=== PATIENT | male | born 1990 | race Hispanic/Latino ===

== ENCOUNTER 2018-03-21 23:09 | Emergency (ER) | payer BC ==
[2018-03-21 23:23] VITALS: TEMP 97.5; O2SAT 100
[2018-03-21] MEDS ORDERED: Albuterol 0.083% Inhal Sol (2.5 mg/3 mL) UD INH STA (23:54)
[2018-03-22] MEDS ORDERED: Albuterol 0.083% Inhal Sol (2.5 mg/3 mL) UD ONE ×2 (00:04→00:59)
--- NOTE | 2018-03-22 00:04 | ED PDOC ---
HPI: SOB/CHF/COPD Time Seen by Provider: 03/21/18 23:31 Chief Complaint (Nursing): Shortness Of Breath History Per: Patient History/Exam Limitations: no limitations Current Symptoms Are (Timing): Still Present Quality: Tightness Additional Complaint(s): No PMHx presenting with chest tightness and SOB, states he returned from [facility] on Saturday, started having symptoms of SOB and chest tightness on Saturday , states that it comes and goes and intensity of symptoms vary, states that Saturday while at work he nearly passed out. States that his tightness is mid- sternal. No cough, fevers, chills, leg/calf pain or swelling. Denies nausea, vomiting. Of note, he states he injured in R ankle in [facility] and has not been as active as normal. Past Medical History Reviewed: Historical Data, Nursing Documentation, Vital Signs Vital Signs: Last Vital Signs Temp 97.5 F L 03/21/18 23:20 Pulse 74 03/22/18 03:10 Resp 19 03/22/18 03:10 BP 135/68 03/22/18 03:10 Pulse Ox 100 03/22/18 03:10 - Family History Family History: States: Unknown Family Hx - Home Medications Home Medications: Ambulatory Orders Medication Instructions Recorded Albuterol HFA [Ventolin HFA 90 2 puff IH [id number] #1 puff 03/22/18 mcg/actuation (8 g)] Ibuprofen [Motrin Tab] 600 mg PO Q6 #30 tab 03/22/18 Prednisone [Deltasone] 40 mg PO DAILY 3 Days #6 tablet 03/22/18 - Allergies Allergies/Adverse Reactions: Allergies Allergy/AdvReac Type Severity Reaction Status Date / Time No Known Allergies Allergy Verified 03/21/18 23:20 Review of Systems ROS Statement: Except As Marked, All Systems Reviewed And Found Negative Cardiovascular: Positive for: Chest Pain, Light Headedness Respiratory: Positive for: Shortness of Breath Physical Exam - Reviewed Nursing Documentation Reviewed: Yes Vital Signs Reviewed: Yes - Physical Exam Appears: Positive for: Well, Non-toxic, No Acute Distress Head Exam: Positive for: ATRAUMATIC, NORMAL INSPECTION, NORMOCEPHALIC Skin: Positive for: Normal Color, Warm, DRY Eye Exam: Positive for: EOMI, Normal appearance, PERRL ENT: Positive for: Normal ENT Inspection Neck: Positive for: Normal, Painless ROM Cardiovascular/Chest: Positive for: Regular Rate, Rhythm Respiratory: Positive for: CNT, Normal Breath Sounds Gastrointestinal/Abdominal: Positive for: Normal Exam, Soft. Negative for: Tenderness Back: Positive for: Normal Inspection Extremity: Positive for: Normal ROM. Negative for: Tenderness, Pedal Edema, Calf Tenderness Neurologic/Psych: Positive for: Alert, Oriented - Laboratory Results Result Diagrams: 03/22/18 01:01 03/22/18 01:01 - ECG O2 Sat by Pulse Oximetry: 100 Pulse Ox Interpretation: Normal Medical Decision Making Medical Decision Makin A/P: Hx of recent travel presenting with chest tightness and SOB -patient appears well, normal vitals, normal exam -concerned for possible PE given history of recent flight and decreased mobility -will give toradol for chest pressure and also albuterol for airway expansion -pending lab resutls 0300 -After medications, patient reports he's feeling better, results are negative -Advised that symptoms are likely result of bronchospasm -Will treat symptomatically, referred patient to [facility] given no PMD -return precautions discussed Disposition - Clinical Impression Clinical Impression: Dyspnea, Bronchospasm - Disposition Referrals: [facility] [Outside] Disposition: Routine/Home Disposition Time: 03:15 Condition: IMPROVED Prescriptions: Albuterol HFA [Ventolin HFA 90 mcg/actuation (8 g)] 2 puff IH [id number] #1 puff Ibuprofen [Motrin Tab] 600 mg PO Q6 #30 tab Prednisone [Deltasone] 40 mg PO DAILY 3 Days #6 tablet Instructions: Shortness of Breath (Dyspnea) (DC) Forms: [facility] ([place])
[2018-03-22 01:06] LABS: BASO % 0.5 % (0.0-2.0); EOS # 0.1 K/uL (0.0-0.7); EOS % 1.6 % (0.0-4.0); HEMOGLOBIN 15.3 g/dL (12.0-18.0); LYMPH # 1.5 K/uL (1.0-4.3); LYMPH % 23.5 % (20.0-40.0); MEAN CELL VOLUME 89.6 fl (80.0-94.0); MEAN CORPUSCULAR HEMOGLOBIN 30.8 pg (27.0-31.0); MEAN CORPUSCULAR HGB CONC 34.4 g/dL (33.0-37.0); MEAN PLATELET VOLUME 8.6 fl (7.2-11.7); MONO # 0.5 K/uL (0.0-0.8); MONO % 8.3 % (0.0-10.0); NEUT # 4.3 K/uL (1.8-7.0); NEUT % 66.1 % (50.0-75.0); RBC 4.95 Mil/uL (4.40-5.90); RED CELL DISTRIBUTION WIDTH 12.7 % (11.5-14.5); WHITE BLOOD COUNT 6.5 K/uL (4.8-10.8)
[2018-03-22 01:25] LABS: BLOOD UREA NITROGEN 15 mg/dl (9-20); CALCIUM 9.3 mg/dL (8.4-10.2); GFR AFRICAN-AMERICAN > 60; GFR NON-AFRICAN AMERICAN > 60
[2018-03-22 03:11] VITALS: BP 135/68; PULSE 74; RESP 19
--- NOTE | 2018-03-22 13:44 | CARD ---
APPROVED REPORT Date of service: 03/21/2018 EKG Measurement Heart [id number] <Conclusion> Normal sinus rhythm Normal ECG
--- NOTE | 2018-03-22 15:07 | RAD ---
Date of service: 03/22/2018 HISTORY: chest tightness, sob COMPARISON: No prior. TECHNIQUE: Chest PA and lateral FINDINGS: LUNGS: No active pulmonary disease. PLEURA: No significant pleural effusion identified. No pneumothorax apparent. CARDIOVASCULAR: Normal. OSSEOUS STRUCTURES: No significant abnormalities. VISUALIZED UPPER ABDOMEN: Normal. OTHER FINDINGS: None. IMPRESSION: No active disease.
== END 2018-03-22 03:24 | disposition home or self-care (01) ==
LOC: H.ER 23:09
DX: R06.00 Dyspnea, unspecified (principal); J98.01 Acute bronchospasm
CPT/HCPCS: 71046; 80048; 84484; 85025; 85378; 93005; 94150; 94640; 96374; 99285; J1885